=== PATIENT | male | born 1940 | race Caucasian/White ===

== ENCOUNTER 2022-04-28 07:36 | Day surgery (SDC) | payer BC, SELFPAY ==
[2022-04-28] MEDS: CEFAZOLIN 2 GM INJ IVP (07:40)
[2022-04-28 07:56] VITALS: BMI 23.8
[2022-04-28 07:59] VITALS: BP 156/56; PULSE 70; RESP 18; TEMP 36.6; O2SAT 97
[2022-04-28 08:32] LABS: Potassium* 5.2 mmol/L (3.6-5.1)
[2022-04-28] MEDS: SODIUM CHLORIDE 0.9 % (FLUSH) 10 ML SYRINGE IVF (08:35)
[2022-04-28] MEDS: LACTATED RINGERS 1000 ML 1,000 ML 100 ML IV (08:40)
[2022-04-28] MEDS: BUPIVACAINE 0.25% 30 ML 7 ML INJECTION (10:15)
[2022-04-28 10:50] VITALS: BP 118/47; PULSE 67; RESP 16; TEMP 36.2; O2SAT 95
--- NOTE | 2022-04-28 10:57 | PM.GSPRC ---
Operative Note Date of procedure: 04/28/22 Type of Procedure: Wide local excision right arm squamous cell carcinoma Procedure Description: After discussing the risks and benefits of the procedure, the patient signed informed consent.? The operative site was marked and the patient was brought to the operating room and placed on the operating table in supine position.? Care was taken to pad the patient's pressure points.?? The patient was then given sedation by anesthesia.?? The operative site was then prepped and draped in the usual sterile fashion.? A time-out was then performed. I 1st measured the lesion. This was 1.5 cm in diameter. I then marked out 5 mm margins on either side. I measured a 7 cm long incision and marked out an ellipse to encompass the lesion and grossly negative margins. Local anesthetic was injected into the skin around the lesion. A knife was then used to make a skin incision. Cautery was then used to remove the lesion, dissecting down to fascia below the lesion. This was then marked with a stitch at the 12 o'clock or proximal position and sent to pathology for frozen section. Margins were negative on frozen section. The wound was then closed with 3 0 Vicryl dermal and 4 0 Monocryl running subcuticular suture. Because the wound came together without tension, no interrupted sutures were placed. The wound was then covered with glue. A gentle pressure dressing was placed given the patient's propensity for bleeding, even though hemostasis appeared excellent at the end of the case. ? The patient was then woken and transported to the recovery area in stable condition. ? The patient tolerated the procedure well. 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
--- NOTE | 2022-04-28 10:58 | W.ANESCHARGE ---
Anesthesia Charges Start Date/Time Anesthesia Start Date: 04/28/22 Anesthesia Start Time: 09:48 Stop Date/Time Anesthesia Stop Date: 04/28/22 Anesthesia Stop Time: 10:53 Summary Emergency: No Extremes of Age: Over 68-CPT [id number]
[2022-04-28 11:00] VITALS: BP 120/86; PULSE 65; RESP 16; O2SAT 96
[2022-04-28 11:15] VITALS: BP 103/45; PULSE 62; RESP 16; O2SAT 96
== END 2022-04-28 11:25 | disposition home or self-care (01) ==
PROVIDERS: PCP Family Medicine; Visit Provider Surgery
PROC: (CPT 11602; principal; 2022-04-28 08:45)
DX: C44.622 Squamous cell carcinoma of skin of right upper limb, including shoulder (principal)
CPT/HCPCS: 11602; 36415; 400; 82962; 84132; 88305; 99100; J0690; J2370; J2704; J3010; J3490; J7120